=== PATIENT | male | born 1950 | race Two or more races ===

== ENCOUNTER 2018-06-10 16:00 | Emergency (ER) | payer OTHER ==
[~2018-06-10] VITALS: Ht 182.9 cm; Wt 117.9 kg
== END 2018-06-10 16:58 | disposition home or self-care (01) ==
LOC: ER 16:00
DX: L03.011 Cellulitis of right finger (principal)

== ENCOUNTER → 2018-07-04 06:40 | Outpatient (CLI) | payer OTHER | END | disposition home or self-care (01) | LOC: LAB 06:40 | DX: D64.89 Other specified anemias (principal); E11.65 Type 2 diabetes mellitus with hyperglycemia; N39.0 Urinary tract infection, site not specified; N40.1 Benign prostatic hyperplasia with lower urinary tract symptoms; E78.2 Mixed hyperlipidemia; E03.8 Other specified hypothyroidism; Z12.11 Encounter for screening for malignant neoplasm of colon ==

== ENCOUNTER 2018-07-08 08:09 | Outpatient (CLI) | payer OTHER | END 2018-07-08 08:20 | disposition home or self-care (01) | LOC: LAB 08:09 | DX: D64.89 Other specified anemias (principal); E11.65 Type 2 diabetes mellitus with hyperglycemia; N39.0 Urinary tract infection, site not specified; N40.1 Benign prostatic hyperplasia with lower urinary tract symptoms; E78.2 Mixed hyperlipidemia; E03.8 Other specified hypothyroidism; Z12.11 Encounter for screening for malignant neoplasm of colon; E11.29 Type 2 diabetes mellitus with other diabetic kidney complication ==

== ENCOUNTER 2018-08-02 08:48 | Emergency (ER) | payer OTHER ==
[~2018-08-02] VITALS: Ht 182.9 cm; Wt 117.5 kg
[2018-08-02] MEDS ORDERED: SYMBICORT 16010.2 GM IH (11:48)
[2018-08-02] MEDS ORDERED: MEDROLPACK PO (11:48)
[2018-08-02] MEDS ORDERED: XOPENEX HFA15 GM IH (11:48)
== END 2018-08-02 14:17 | disposition home or self-care (01) ==
LOC: ER 08:48
DX: J44.9 Chronic obstructive pulmonary disease, unspecified (principal)

== ENCOUNTER 2019-08-07 20:38 | Emergency (ER) | payer OTHER ==
[~2019-08-07] VITALS: Ht 182.9 cm; Wt 116.1 kg
[~2019-08-07 20:38] MED LIST: MEDROLPACK PO; SYMBICORT 16010.2 GM IH; XOPENEX HFA15 GM IH
== END 2019-08-07 21:25 | disposition home or self-care (01) ==
LOC: ER 20:38
DX: G89.11 Acute pain due to trauma (principal); M25.561 Pain in right knee

== ENCOUNTER 2020-07-02 09:03 | Emergency (ER) | payer OTHER ==
[~2020-07-02] VITALS: Ht 182.9 cm; Wt 113.4 kg
[2020-07-02] MEDS ORDERED: COZAAR25 MG (09:16)
[2020-07-02] MEDS ORDERED: TAMS0.4C PO (12:18)
[2020-07-02] MEDS ORDERED: KETO10TA2 PO (12:18)
[2020-07-02] MEDS ORDERED: BACTRIM DS TAB1 EACH PO (12:31)
== END 2020-07-02 13:12 | disposition home or self-care (01) ==
LOC: ER 09:03
DX: N20.0 Calculus of kidney (principal); R31.0 Gross hematuria

== ENCOUNTER 2020-08-19 15:24 | Emergency (ER) | payer OTHER ==
[~2020-08-19] VITALS: Ht 182.9 cm; Wt 116.1 kg
[~2020-08-19 15:24] MED LIST changes: +BACTRIM DS TAB1 EACH PO; +COZAAR25 MG; +KETO10TA2 PO; +TAMS0.4C PO
[2020-08-19] MEDS ORDERED: MONTELUKAST SOD10 MG PO (15:43)
[2020-08-19] MEDS ORDERED: LOSARTAN POTASS25 MG PO (15:43)
== END 2020-08-19 18:24 | disposition home or self-care (01) ==
LOC: ER 15:24
DX: N13.2 Hydronephrosis with renal and ureteral calculous obstruction (principal); R10.32 Left lower quadrant pain; R10.12 Left upper quadrant pain; Z03.818 Encounter for observation for suspected exposure to other biological agents ruled out

== ENCOUNTER 2020-08-23 11:36 | Outpatient (CLI) | payer OTHER ==
[~2020-08-23 11:36] MED LIST changes: +LOSARTAN POTASS25 MG PO; +MONTELUKAST SOD10 MG PO
== END 2020-08-23 11:40 | disposition home or self-care (01) ==
LOC: RAD 11:36
PROVIDERS: ATTEND Specialist
DX: I10 Essential (primary) hypertension (principal); N20.0 Calculus of kidney; N13.1 Hydronephrosis with ureteral stricture, not elsewhere classified

== ENCOUNTER → 2020-09-06 | Outpatient (CLI) | payer OTHER | END | disposition home or self-care (01) | LOC: RAD 09:22 | DX: N20.1 Calculus of ureter (principal); N40.1 Benign prostatic hyperplasia with lower urinary tract symptoms ==

== ENCOUNTER 2020-11-26 07:56 | Outpatient (CLI) | payer OTHER | END 2020-11-26 07:57 | disposition home or self-care (01) | LOC: RAD 07:56 | PROVIDERS: ATTEND Specialist | DX: N20.0 Calculus of kidney (principal) ==

== ENCOUNTER 2021-08-09 16:00 | Outpatient (CLI) | payer OTHER | END 2021-08-09 16:10 | disposition home or self-care (01) | LOC: RAD 16:00 | DX: I10 Essential (primary) hypertension (principal); J44.9 Chronic obstructive pulmonary disease, unspecified ==